=== PATIENT | female | born 1980 | race Hispanic/Latino ===

== ENCOUNTER → 2024-04-15 | Day surgery (SDC) | payer OTHER ==
[~2024-04-15] MED LIST: FENTANYL CITRATE/PF 100MCG/2 ML INJ ONE; GLYCOPYRROLATE INJ 0.2 MG/ML VIAL ONE; LIDOCAINE HCL 2% LOCAL INJ 5 ML SDV VIAL INJ ONE; PROPOFOL IV EMULSION 10 MG/ML 20 ML VIAL ONE; ZYRTEC-D TABLE1 EACH PO
[2024-04-15] MEDS: LACTATED RINGER'S 1,000 ML ONE (06:30)
[2024-04-15 07:57] VITALS: BP 122/78; PULSE 76; RESP 17; O2SAT 98
== END | disposition home or self-care (01) ==
LOC: OR 05:33
PROVIDERS: ATTEND Internal Medicine Gastroenterology
DX: K21.9 Gastro-esophageal reflux disease without esophagitis (principal); K29.50 Unspecified chronic gastritis without bleeding; K31.A12 Gastric intestinal metaplasia without dysplasia, involving the body (corpus); K31.89 Other diseases of stomach and duodenum; K20.90 Esophagitis, unspecified without bleeding; K76.0 Fatty (change of) liver, not elsewhere classified
CPT/HCPCS: 43239; J2003; J2470; J2704; J3010; J7121